=== PATIENT | male | born 1960 | race Caucasian/White ===

== ENCOUNTER 2021-05-01 15:02 | Emergency (ER) | payer BC, SELFPAY ==
[~2021-05-01] VITALS: Ht 190.5 cm; Wt 120.2 kg
[2021-05-01 15:02] VITALS: BP_SYST 106
--- NOTE | 2021-05-01 15:02 | NUR ---
TRIAGED IN AMBULANCE BAY AND AWAITING ER BED.
--- NOTE | 2021-05-01 16:10 | NUR ---
DR HURTADO OUT TO AMBULANCE BAY FOR EVALUATION. AWAITING ORDERS
[2021-05-01] MEDS ORDERED: DEXAMETHASONE SOD PHOSPHATE 10 MG/ML VIAL IVP ONE (16:30)
--- NOTE | 2021-05-01 17:00 | NUR ---
ACCORDING TO [facility], PT WILL BE DIVERTED TO ANOTHER HOSPITAL PER THEIR INFORMATICS CONSULTANT. DR HURTADO AWARE
== END 2021-05-01 17:21 | disposition short-term general hospital (02) ==
LOC: SED 15:02
DX: U07.1 COVID-19 (principal); J96.91 Respiratory failure, unspecified with hypoxia; I10 Essential (primary) hypertension
CPT/HCPCS: 99291